=== PATIENT | female | born 1970 | race Caucasian/White ===

== ENCOUNTER → 2021-01-07 | Outpatient (CLI) | payer OTHER | LOC: KOH-I 12-26 08:15 | DX: M23.51 Chronic instability of knee, right knee (principal); M25.461 Effusion, right knee | CPT/HCPCS: 73721 ==

== ENCOUNTER → 2021-08-28 | Outpatient (CLI) | payer OTHER | LOC: KOH-I 16:00 | DX: M54.10 Radiculopathy, site unspecified (principal); M51.27 Other intervertebral disc displacement, lumbosacral region | CPT/HCPCS: 72148 ==